=== PATIENT | male | born 1965 | race Caucasian/White ===

== ENCOUNTER → 2019-01-06 | Outpatient (CLI) | payer OTHER ==
--- NOTE | 2019-01-07 14:36 | XR ---
EXAMINATION TYPE: XR wrist complete RT DATE OF EXAM: 01/06/2019 CLINICAL HISTORY: Pain, extensor Tenosynovitis. TECHNIQUE: Frontal, lateral, scaphoid, and oblique images of the right wrist are obtained. COMPARISON: None FINDINGS: There is no acute fracture/dislocation evident in the right wrist. There is severe radial scaphoid joint space loss with endplate sclerosis. Scaphoid lunate angle is less than 30 degrees. The re is subchondral cystic change in the distal scaphoid and capitate The scapholunate widening. Some s clerosis and subchondral cystic change in the radial aspect of the lunate is present. Lunate capitate relationship is difficult to evaluate on lateral images. Overlying soft tissue is unremarkable. IMPRESSION: As above. Severe degenerative changes are noted.
--- NOTE | 2019-01-07 14:43 | XR ---
EXAMINATION TYPE: XR lumbar spine 2 or 3V DATE OF EXAM: 01/06/2019 CLINICAL HISTORY: Low back pain. TECHNIQUE: Frontal and lateral images of the lumbar spine are obtained. COMPARISON: None FINDINGS: There are 5 lumbar type vertebral bodies identified. There is right lateral step-off of L3 on L2. There is loss of normal lumbar lordosis with multilevel spondylolisthesis on lateral images. There is moderate to advanced disc space narrowing L2-L3 and L3-L4 levels. There is moderate to advan gaurav left lateral spurring and sclerosis L3-L4 level. There is mild to moderate disc space narrowing L 5-S1 level. There is mild to moderate narrowing and spurring L1-L2 level. There is stellate 1.8 cm de nsity just below right 12th rib favoring collecting system calculus. Gallstone felt less likely due t o posterior positioning on lateral view. Advise clinical and urine correlation and urology referral. IMPRESSION: As above.
== END | disposition home or self-care (01) ==
LOC: RADXRMAIN 17:16
PROVIDERS: ATTEND Family Medicine
DX: M99.73 Connective tissue and disc stenosis of intervertebral foramina of lumbar region (principal); M43.16 Spondylolisthesis, lumbar region; M19.031 Primary osteoarthritis, right wrist; M85.68 Other cyst of bone, other site
CPT/HCPCS: 72100

== ENCOUNTER 2020-01-29 07:32 | Emergency (ER) | payer OTHER ==
[2020-01-29 07:44] VITALS: RESP 18
[2020-01-29] MEDS ORDERED: KETOROLAC 30 MG/ML 1 ML VIAL IVP STA (07:52)
[2020-01-29] MEDS ORDERED: ONDANSETRON 4 MG/2 ML VIAL IVP STA (07:52)
[2020-01-29] MEDS ORDERED: SODIUM CHLORIDE 0.9% 1,000 ML IV STA (07:52)
--- NOTE | 2020-01-29 07:54 | ED ---
General Adult HPI - General Chief complaint: Abdominal Pain Stated complaint: Kidney stone Time Seen by Provider: 01/29/20 07:42 Source: patient, RN notes reviewed, old records reviewed Mode of arrival: ambulatory Limitations: no limitations - History of Present Illness Initial comments: 54-year-old male history of kidney stones presenting for evaluation of right flank and right lower abdominal pain. Pain is been present for the past one month. Has been getting worse. He states he was told several years ago that he had an additional kidney stone on the right this was after lithotripsy to remove several smaller stones. He reports dark urine. He's had nausea without vomiting. He's had normal bowel movements. No fever. - Related Data Previous Rx's Medication Instructions Recorded HYDROcodone/APAP 5-325MG [Gil[place] 1 tab PO Q6HR PRN #12 tab 01/29/20 5-325] Ibuprofen [Motrin] 600 mg PO Q8HR PRN #24 tab 01/29/20 Allergies Allergy/AdvReac Type Severity Reaction Status Date / Time Penicillins Allergy Rash/Hives Verified 01/29/20 08:29 Review of Systems ROS Statement: Those systems with pertinent positive or pertinent negative responses have been documented in the HPI. ROS Other: All systems not noted in ROS Statement are negative. Past Medical History Additional Past Medical History / Comment(s): kidney stones History of Any Multi-Drug Resistant Organisms: None Reported Past Surgical History: Hernia Repair Additional Past Surgical History / Comment(s): kidney stone removal not lithotripsy Past Psychological History: No Psychological Hx Reported Smoking Status: Current every day smoker Past Alcohol Use History: None Reported Past Drug Use History: None Reported General Exam Limitations: no limitations General appearance: alert, in no apparent distress Head exam: Present: atraumatic, normocephalic Eye exam: Present: normal appearance, PERRL ENT exam: Present: normal exam Neck exam: Present: normal inspection. Absent: tenderness, meningismus Respiratory exam: Present: normal lung sounds bilaterally. Absent: respiratory distress, wheezes Cardiovascular Exam: Present: regular rate, normal rhythm GI/Abdominal exam: Present: soft, tenderness (Minimal right lower quadrant tenderness). Absent: distended, guarding Extremities exam: Present: normal inspection, normal capillary refill Back exam: Present: normal inspection. Absent: CVA tenderness (R), CVA tendern ess (L) Neurological exam: Present: alert, oriented X3, CN II-XII intact. Absent: motor sensory deficit Psychiatric exam: Present: normal affect, normal mood Skin exam: Present: warm, dry, intact. Absent: cyanosis, diaphoretic Course Vital Signs 01/29/20 07:41 Temperature 98.4 F Pulse Rate 72 Respiratory 18 Rate Blood Pressure 176/108 O2 Sat by Pulse 99 Oximetry - Reevaluation(s) Reevaluation #1: 01/29/20 10:13 Regarding the patient's lung mass on CT. This was visualized partially on KUB and abdominal CT. CT chest with contrast was ordered which shows large posterior right hilar mass, concerning for neoplasm. Patient states he has known about this mass for at least 5 years. He had a biopsy. He has not received any treatment for malignancy. He states it has not been imaged in several years. It is not currently following with anyone regarding this finding. He states that he was told it was a "wandering mass" Medical Decision Making - Medical Decision Making 54-year-old male with history of kidney stones presenting with right flank pain which is been ongoing for 1 month. No vomiting. No fever. Patient given Toradol in the emergency department with improvement in symptoms. CT showing 2 mm stone at the UPJ with hydronephrosis. X-ray is consistent with CT findings. Additionally there is a right hilar mass which the patient has known about for at least 5 years. He has had this biopsied in the past. CT performed which does confirm this mass. Patient is given pulmonology follow-up. Case discussed with urology Dr. Yang, recommends outpatient follow-up for likely percutaneous removal. Patient given urology follow-up, pulmonology follow-up symptoms are controlled with 30 mg of Toradol, will be prescribed Motrin and Gilsum. Will return with worsening or changing symptoms. - Lab Data Result diagrams: 01/29/20 08:19 01/29/20 08:19 Lab Results 01/29/20 01/29/20 01/29/20 Range/Units 08:19 08:19 08:19 WBC 8.2 (3.8-10.6) k/uL RBC 4.76 (4.30-5.90) m/uL Hgb 16.0 (13.0-17.5) gm/dL Hct 46.4 (39.0-53.0) % MCV 97.5 (80.0-100.0) fL MCH 33.5 (25.0-35.0) pg MCHC 34.4 (31.0-37.0) g/dL RDW 12.8 (11.5-15.5) % Plt Count 314 (150-450) k/uL Neutrophils % 77 % Lymphocytes % 11 % Monocytes % 7 % Eosinophils % 3 % Basophils % 1 % Neutrophils # 6.3 (1.3-7.7) k/uL Lymphocytes # 0.9 L (1.0-4.8) k/uL Monocytes # 0.6 (0-1.0) k/uL Eosinophils # 0.2 (0-0.7) k/uL Basophils # 0.0 (0-0.2) k/uL PT 10.0 (9.0-12.0) sec INR 1.0 (<1.2) APTT 26.2 (22.0-30.0) sec Sodium 139 (137-145) mmol/L Potassium 3.7 (3.5-5.1) mmol/L Chloride 104 (98-107) mmol/L Carbon Dioxide 28 (22-30) mmol/L Anion Gap 7 mmol/L BUN 15 (9-20) mg/dL Creatinine 1.08 (0.66-1.25) mg/dL Est GFR (CKD-EPI)AfAm 89 (>60 ml/min/1.73 sqM) Est GFR (CKD-EPI)NonAf 77 (>60 ml/min/1.73 sqM) Glucose 102 H (74-99) mg/dL Plasma Lactic Acid Brent (0.7-2.0) mmol/L Calcium 9.0 (8.4-10.2) mg/dL Total Bilirubin 0.8 (0.2-1.3) mg/dL AST 22 (17-59) U/L ALT 15 (4-49) U/L Alkaline Phosphatase 74 (38-126) U/L Total Protein 6.7 (6.3-8.2) g/dL Albumin 4.1 (3.5-5.0) g/dL Amylase 56 (30-110) U/L Lipase 82 (23-300) U/L Urine Color Urine Appearance (Clear) Urine pH (5.0-8.0) Ur Specific [place] (1.001-1.035) Urine Protein (Negative) Urine Glucose (UA) (Negative) Urine Ketones (Negative) Urine Blood (Negative) Urine Nitrite (Negative) Urine Bilirubin (Negative) Urine Urobilinogen (<2.0) mg/dL Ur Leukocyte Esterase (Negative) Urine RBC (0-5) /hpf Urine WBC (0-5) /hpf Ur Squamous Epith Cells (0-4) /hpf Urine Bacteria (None) /hpf Urine Mucus (None) /hpf 01/29/20 01/29/20 Range/Units 08:19 09:29 WBC (3.8-10.6) k/uL RBC (4.30-5.90) m/uL Hgb (13.0-17.5) gm/dL Hct (39.0-53.0) % MCV (80.0-100.0) fL MCH (25.0-35.0) pg MCHC (31.0-37.0) g/dL RDW (11.5-15.5) % Plt Count (150-450) k/uL Neutrophils % % Lymphocytes % % Monocytes % % Eosinophils % % Basophils % % Neutrophils # (1.3-7.7) k/uL Lymphocytes # (1.0-4.8) k/uL Monocytes # (0-1.0) k/uL Eosinophils # (0-0.7) k/uL Basophils # (0-0.2) k/uL PT (9.0-12.0) sec INR (<1.2) APTT (22.0-30.0) sec Sodium (137-145) mmol/L Potassium (3.5-5.1) mmol/L Chloride (98-107) mmol/L Carbon Dioxide (22-30) mmol/L Anion Gap mmol/L BUN (9-20) mg/dL Creatinine (0.66-1.25) mg/dL Est GFR (CKD-EPI)AfAm (>60 ml/min/1.73 sqM) Est GFR (CKD-EPI)NonAf (>60 ml/min/1.73 sqM) Glucose (74-99) mg/dL Plasma Lactic Acid Brent 1.4 (0.7-2.0) mmol/L Calcium (8.4-10.2) mg/dL Total Bilirubin (0.2-1.3) mg/dL AST (17-59) U/L ALT (4-49) U/L Alkaline Phosphatase (38-126) U/L Total Protein (6.3-8.2) g/dL Albumin (3.5-5.0) g/dL Amylase (30-110) U/L Lipase (23-300) U/L Urine Color Yellow Urine Appearance Clear (Clear) Urine pH 6.0 (5.0-8.0) Ur Specific [place] 1.015 (1.001-1.035) Urine Protein 1+ H (Negative) Urine Glucose (UA) 1+ H (Negative) Urine Ketones Negative (Negative) Urine Blood Small H (Negative) Urine Nitrite Negative (Negative) Urine Bilirubin Negative (Negative) Urine Urobilinogen <2.0 (<2.0) mg/dL Ur Leukocyte Esterase Negative (Negative) Urine RBC 6 H (0-5) /hpf Urine WBC 5 (0-5) /hpf Ur Squamous Epith Cells <1 (0-4) /hpf Urine Bacteria Rare H (None) /hpf Urine Mucus Occasional H (None) /hpf Disposition Clinical Impression: Abdominal pain, Lung mass, Kidney stone on right side, Hydronephrosis Disposition: HOME SELF-CARE Condition: Fair Instructions (If sedation given, give patient instructions): Abdominal Pain (ED), Kidney Stones (ED), Flank Pain (ED) Additional Instructions: Please follow up with urology regarding kidney stone, Please follow-up with pulmonology regarding lung mass. Prescriptions: Ibuprofen [Motrin] 600 mg PO Q8HR PRN #24 tab PRN Reason: Pain HYDROcodone/APAP 5-325MG [[place] 5-325] 1 tab PO Q6HR PRN #12 tab PRN Reason: Pain Is patient prescribed a controlled substance at d/c from ED?: No Referrals: Aj Cooper DO [Primary Care Provider] - 1-2 days Tavo Yang MD [STAFF PHYSICIAN] - 1-2 days Mir Carnes MD [STAFF PHYSICIAN] - 1-2 days Time of Disposition: 10:26
--- NOTE | 2020-01-29 08:41 | CT ---
EXAMINATION TYPE: CT abdomen pelvis wo con DATE OF EXAM: 01/29/2020 HISTORY: Abdominal pain not further specified. History of renal stones. CT DLP: 444.8 mGycm. Automated Exposure Control for Dose Reduction was Utilized. TECHNIQUE: CT scan of the abdomen and pelvis is performed without oral or IV contrast. COMPARISON: NONE FINDINGS: Within the limitations of a non-contrast study, the following observations are made. LUNG BASES: Trace right pleural effusion with associated bibasilar compressive atelectasis. LIVER/GB: No significant abnormality is appreciated. PANCREAS: No significant abnormality is seen. SPLEEN: No significant abnormality is seen. ADRENALS: No significant abnormality is seen. KIDNEYS: Corresponding to localizer there is slightly irregular marginated 19 to 20 mm calculus at ri ght UPJ causing fairly severe right-sided pyelocaliectasis. No additional renal calculi bilaterally. No left-sided hydronephrosis. Scattered pelvic phleboliths. [id number]-[id number] concentric wall thickeni ng in the bladder presumed product of outlet obstruction related to BPH. Correlate clinically. BOWEL: Suboptimal evaluation without enteric contrast and patient having little intra-abdominal fat. No suspicious small or large bowel dilatation.. GENITAL ORGANS: Mildly enlarged prostate gland bulging on the bladder base consistent with BPH.. LYMPH NODES: No greater than 1cm abdominal or pelvic lymph nodes are appreciated. OSSEOUS STRUCTURES: Right lateral step-off bowel 3 on L2. Slight grade 1 retrolisthesis L1 on L2, L2 on L3, and L3 on L4. Severe disc space narrowing with endplate sclerosis and moderate spurring right L2-L3 and left L3-L4 levels. Nonspecific subcentimeter sclerotic focus posterior superior L3 vertebra favored benign bone island coronal image 54. Multilevel posterior disc herniations and spur disc com plexes efface the anterior thecal sac throughout the lumbar spine on sagittal images. OTHER: No significant additional abnormality is seen. IMPRESSION: There is large calculus measuring 19 to 20 mm long axis at right UPJ causing severe right -sided hydronephrosis.
[2020-01-29 08:43] LABS: Basophils % (A) 1 %; Eosinophils # (A) 0.2 k/uL (0-0.7); Eosinophils % (A) 3 %; HCT 46.4 % (39.0-53.0); Lymphocytes # (A) 0.9 k/uL (1.0-4.8); Lymphocytes % (A) 11 %; MCH 33.5 pg (25.0-35.0); MCHC 34.4 g/dL (31.0-37.0); MCV 97.5 fL (80.0-100.0); Mean Platelet Volume 6.3; Monocytes # (A) 0.6 k/uL (0-1.0); Monocytes % (A) 7 %; Neutrophils # (A) 6.3 k/uL (1.3-7.7); Neutrophils % (A) 77 %; Platelet Count 314 k/uL (150-450); RBC 4.76 m/uL (4.30-5.90); RDW 12.8 % (11.5-15.5); WBC 8.2 k/uL (3.8-10.6)
[2020-01-29 08:51] LABS: Partial Thromboplastin Time 26.2 sec (22.0-30.0)
[2020-01-29 08:52] LABS: Albumin 4.1 g/dL (3.5-5.0); Potassium 3.7 mmol/L (3.5-5.1); Total Bilirubin 0.8 mg/dL (0.2-1.3); Total Protein 6.7 g/dL (6.3-8.2)
[2020-01-29] MEDS ORDERED: RX INFO: IV CONTRAST WAS GIVEN 1 EACH MISC MISCELLANE PRN (09:26)
--- NOTE | 2020-01-29 09:29 | XR ---
EXAMINATION TYPE: XR KUB DATE OF EXAM: 01/29/2020 9:16 AM CLINICAL HISTORY: History of renal stones with abdominal pain. TECHNIQUE: Two Upright KUB images of the abdomen are obtained. COMPARISON: CT abdomen and pelvis earlier today. FINDINGS: Scattered gas is seen in non-distended stomach and small bowel loops. Gas and fecal materia l is seen in non-distended colon. There is 1.7 cm stellate calcification or calculus right L2 transve rse process level corresponding to dominant stone UPJ on recent CT. Scattered bilateral pelvic phlebo liths. No pneumoperitoneum. Partial visualization of right hilar masslike consolidation. Right latera l step-off L2-L3 level. No pneumoperitoneum. IMPRESSION: Confirmation of known large right UPJ calculus measuring roughly 19 mm. Suspicious right hilar masslike consolidation partially imaged, cannot rule out underlying neoplasm. Follow-up advised . Results communicated to ordering ER physician via telephone at time of dictation.
[2020-01-29 09:58] LABS: Color,Urine Yellow
[2020-01-29 09:59] LABS: Appearance,Urine Clear (Clear); Specific Gravity,Urine 1.015 (1.001-1.035)
[2020-01-29 10:00] LABS: Bilirubin,Urine Negative (Negative); Blood,Urine Small (Negative); Glucose,Urine (UA) 1+ (Negative); Ketones,Urine Negative (Negative); Leukocyte Esterase,Urine Negative (Negative); Nitrite,Urine Negative (Negative); Urobilinogen,Urine <2.0 mg/dL (<2.0)
[2020-01-29 10:01] LABS: Bacteria,Urine Rare /hpf; Mucus,Urine Occasional /hpf; RBC,Urine 6 /hpf (0-5); Squamous Epithelial Cell,Urine <1 /hpf (0-4); WBC,Urine 5 /hpf (0-5)
--- NOTE | 2020-01-29 10:10 | CT ---
EXAMINATION TYPE: CT chest w con DATE OF EXAM: 01/29/2020 COMPARISON: None HISTORY: Lung mass CT DLP: 268.5 mGycm, Automated exposure control for dose reduction was used. CONTRAST: Performed injected with 100 mL of Isovue 300. TECHNIQUE: Axial images were obtained at 5 mm thick sections. Reconstructed images are reviewed on [employer] computer in the coronal plane. FINDINGS: Portion of the thyroid visualized is normal. There is a large mass in the posterior medial right midlung. This has some mild posterior right perib ronchial compression causing narrowing. Mass measures 7.9 x 8.9 x 12.7 cm. Series 201 image 25, serie s 202 image 55. This has some central hypodensity. A small amount of right pleural effusion is adjace nt. No enlarged mediastinal or hilar adenopathy is evident. The ascending aorta diameter at the level o f the main pulmonary artery is 3.6 cm. The main pulmonary artery diameter at the bifurcation is 2.[address] sections are obtained through the upper abdomen. Large calcifications in the right renal p sunny with moderate hydronephrosis. IMPRESSIONS: 1. Large posterior medial lung mass adjacent to the spine. Workup for neoplasm is recommended.
[2020-01-29 10:46] VITALS: BP 159/99; PULSE 66; TEMP 97.8
[2020-01-30 11:48] LABS: Protein,Urine Negative (Negative)
== END 2020-01-29 10:46 | disposition home or self-care (01) ==
LOC: EC 07:32
DX: N13.2 Hydronephrosis with renal and ureteral calculous obstruction (principal); R91.8 Other nonspecific abnormal finding of lung field; F17.200 Nicotine dependence, unspecified, uncomplicated; Z88.0 Allergy status to penicillin; Z98.890 Other specified postprocedural states
CPT/HCPCS: 36415; 80053; 82150; 83605; 83690; 85025; 85610; 85730; 81001; 74018; 71260; 74176; 99285; 96374; 96375; 96361; J2405; J1885; Q9967

== ENCOUNTER → 2020-02-08 | Outpatient (CLI) | payer OTHER ==
[2020-02-08 15:59] LABS: Appearance,Urine Clear (Clear); Bacteria,Urine Rare /hpf; Bilirubin,Urine Negative (Negative); Blood,Urine Large (Negative); Color,Urine Yellow; Glucose,Urine (UA) Negative (Negative); Hyaline Casts,Urine 1 /lpf (0-2); Ketones,Urine Negative (Negative); Leukocyte Esterase,Urine Moderate (Negative); Mucus,Urine Few /hpf; Nitrite,Urine Negative (Negative); PH, Urine 5.5 (5.0-8.0); Protein,Urine 1+ (Negative); RBC,Urine 174 /hpf (0-5); Specific Gravity,Urine 1.016 (1.001-1.035); Squamous Epithelial Cell,Urine <1 /hpf (0-4); Urobilinogen,Urine <2.0 mg/dL (<2.0); WBC,Urine 26 /hpf (0-5)
[2020-02-08 16:10] LABS: Basophils # (A) 0.1 k/uL (0-0.2); Basophils % (A) 1 %; Eosinophils # (A) 0.1 k/uL (0-0.7); Eosinophils % (A) 1 %; HCT 46.3 % (39.0-53.0); HGB 14.9 gm/dL (13.0-17.5); Lymphocytes # (A) 1.4 k/uL (1.0-4.8); Lymphocytes % (A) 17 %; MCH 31.9 pg (25.0-35.0); MCHC 32.3 g/dL (31.0-37.0); MCV 98.7 fL (80.0-100.0); Mean Platelet Volume 6.4; Monocytes # (A) 0.5 k/uL (0-1.0); Monocytes % (A) 6 %; Neutrophils # (A) 5.9 k/uL (1.3-7.7); Neutrophils % (A) 74 %; Platelet Count 341 k/uL (150-450); RBC 4.69 m/uL (4.30-5.90); RDW 12.8 % (11.5-15.5)
[2020-02-08 16:19] LABS: Albumin 4.5 g/dL (3.5-5.0); Calcium 9.5 mg/dL (8.4-10.2); Potassium 3.9 mmol/L (3.5-5.1); Total Bilirubin 0.9 mg/dL (0.2-1.3)
== END | disposition home or self-care (01) ==
LOC: LABPAT 14:42
PROVIDERS: ATTEND Urology
DX: Z01.818 Encounter for other preprocedural examination (principal); N20.0 Calculus of kidney; R31.0 Gross hematuria
CPT/HCPCS: 36415; 80053; 81001; 85025; 87086

== ENCOUNTER 2020-02-14 06:08 | Day surgery (SDC) | payer OTHER ==
--- NOTE | 2020-02-11 19:32 | P.GSHP ---
History of Present Illness H&P Date: 02/11/20 54 yo male came via the [facility] with a large obstructing right renal pelvic stone. He has a history of stones including 2 previous ureteroscopies elswhere. He has a history of a large reight lung mass previously biopsied negative for carcinoma. Because of the pain and the large right renal pelvic stone he comes for a pcnl right. Risks and complications including failure to remove the stone, damage to adjacent organs, infection bleeding ain, transfusion ,loss of kidney have been explained understood and accepted. - Respiratory Comment: history of a sowly growing lung ss right , previously bipsied negative. He hasnt followed with a pulmonary doctor in some time by his own choice. Past Medical History Additional Past Medical History / Comment(s): kidney stones, lung disease with a right pulmonary mass biopsied negative for cancer in the past. History of Any Multi-Drug Resistant Organisms: None Reported Past Surgical History: Hernia Repair Additional Past Surgical History / Comment(s): kidney stone removal not lithotripsy Past Psychological History: No Psychological Hx Reported Smoking Status: Current every day smoker Past Alcohol Use History: None Reported Past Drug Use History: None Reported Medications and Allergies Home Medications Medication Instructions Recorded Confirmed Type HYDROcodone/APAP 5-325MG [[place] 1 tab PO Q6HR PRN #12 tab 01/29/20 Rx 5-325] Ibuprofen [Motrin] 600 mg PO Q8HR PRN #24 tab 01/29/20 Rx Allergies Allergy/AdvReac Type Severity Reaction Status Date / Time Penicillins Allergy Rash/Hives Verified 01/29/20 08:29 Surgical - Exam - General well developed, well nourished, no distress - Eyes normal ocular movement, no icteric - ENT no hearing loss, no congestion - Neck no masses, trachea midline - Respiratory normal respiratory effort, clear to auscultation - Abdomen Abdomen: soft, non tender, no guarding, no rigid, no rebound - Integumentary no rash, no abnormal pigmentation - Neurologic no disoriented, no combative - Psychiatric oriented to time, oriented to person, oriented to place, speech is normal, memory intact Results - Imaging CT scan - abdomen: report reviewed, image reviewed CT scan - pelvis: report reviewed, image reviewed Assessment and Plan Assessment: Impression: right renal pelvic stone large. Plan: Right PCNL
[2020-02-13 08:41] VITALS: BMI 22.4
[~2020-02-14 06:08] MED LIST: DEXAMETHASONE SOD PHOSPHATE 10 MG/ML 1 ML VIAL IV ONE; HYDROmorphone 0.5 MG/0.5 ML SYRINGE IVP PRN; LIDOCAINE 1% (10MG/ML) FOR IV START INTRADERMA PRN; MIDAZOLAM 2 MG/2 ML VIAL IV PRN; ONDANSETRON 4 MG/2 ML VIAL IVP ONE; fentaNYL (PF) 50 MCG/ML 2 ML AMP IVP PRN
[2020-02-14] MEDS ORDERED: ONDANSETRON 4 MG/2 ML VIAL ONE (06:53)
[2020-02-14] MEDS ORDERED: LIDOCAINE 1% (10MG/ML) FOR IV START INTRADERMA ONE (06:56)
[2020-02-14] MEDS ORDERED: LACTATED RINGERS 1,000 ML IV ONE ×2 (06:56→09:05)
[2020-02-14] MEDS ORDERED: fentaNYL (PF) 50 MCG/ML 2 ML AMP ONE (07:25)
[2020-02-14] MEDS ORDERED: MIDAZOLAM 2 MG/2 ML VIAL ONE (07:25)
[2020-02-14] MEDS ORDERED: KETOROLAC 30 MG/ML 1 ML VIAL ONE (07:25)
[2020-02-14] MEDS ORDERED: HYDROmorphone (PF) 1 MG/ML ONE (07:25)
[2020-02-14] MEDS ORDERED: PROPOFOL 10 MG/ML 20 ML VIAL IV ONE (07:25)
[2020-02-14] MEDS ORDERED: SUCCINYLCHOLINE CHLORIDE 100 MG/5 ML SYR IV ONE (07:25)
[2020-02-14] MEDS ORDERED: ROCURONIUM BROMIDE 10 MG/ML 5 ML VIAL IV ONE (07:25)
[2020-02-14] MEDS ORDERED: ePHEDrine SULFATE/0.9% NACL/PF 50 MG/5 ML SYRINGE IV ONE (07:25)
[2020-02-14] MEDS ORDERED: GLYCOPYRROLATE 0.2 MG/ML 2 ML VIAL ONE (07:25)
[2020-02-14] MEDS ORDERED: NEOSTIGMINE 1 MG/ML 10 ML VIAL ONE (07:25)
[2020-02-14] MEDS ORDERED: LIDOCAINE 1% INJ 10MG/ML (20 ML MDV) ONE (07:25)
[2020-02-14] MEDS ORDERED: IOPAMIDOL-370 50ML BTL INJ ONE (08:29)
--- NOTE | 2020-02-14 08:51 | XR ---
EXAMINATION TYPE: XR abdomen 1V DATE OF EXAM: 02/14/2020 COMPARISON: 01/29/2020 HISTORY: Right renal stone TECHNIQUE: Frontal view abdomen FINDINGS: Calcification overlying the right mid kidney measurements are 2.1 x 1.9 cm. Some magnificat ion may be accounting for the apparent increase in size. Psoas margins are normal. Organomegaly is not evident. Loops of bowel with bowel gas are normal. Phle boliths within the pelvis. IMPRESSION: 1. Large right renal stone remains present
[2020-02-14] MEDS ORDERED: HYDROcodone/APAP 5-325MG 1 EACH TAB PO PRN (09:14)
[2020-02-14] MEDS ORDERED: ONDANSETRON 4 MG/2 ML VIAL IVP PRN ×2 (09:15→17:28)
[2020-02-14] MEDS ORDERED: ACETAMINOPHEN TAB 325 MG TAB PO PRN ×2 (09:15→17:30)
[2020-02-14] MEDS ORDERED: DEXTROSE 5%-0.45% NACL 1,000 ML IV SCH (09:15)
[2020-02-14] MEDS ORDERED: MAG HYDROX/AL HYDROX/SIMETH 30 ML CUP PO PRN ×2 (09:15→17:30)
[2020-02-14] MEDS ORDERED: HYDROmorphone PCA 10 MG/50 ML BAG IV PRN ×3 (09:19→13:58)
[2020-02-14] MEDS ORDERED: NALOXONE 0.4 MG/ML 1 ML VIAL IV PRN ×2 (09:19→17:29)
[2020-02-14] MEDS ORDERED: ONDANSETRON 4 MG/2 ML VIAL IVP ONE (09:24)
--- NOTE | 2020-02-14 09:24 | P.OP ---
Date of Procedure: 02/14/20 Preoperative Diagnosis: Right renal calculus Postoperative Diagnosis: Same Procedure(s) Performed: Cystoscopy, right ureteral stent placement, right percutaneous nephrostomy (Dr. galan), percutaneous nephrostolithotomy with ultrasound, placement of 10-Fr ench nephrostomy tube Anesthesia: KELLY Surgeon: Hieu Barger Estimated Blood Loss (ml): 50 Pathology: other (Stone) Condition: stable Disposition: PACU Indications for Procedure: The patient is 54. He is active urolithiasis. He has a 16-17 mm UPJ stone on the right. He has been given treatment options. He comes for percutaneous nephrostolithotomy Description of Procedure: The patient is brought to the operating suite. He is given a general endotracheal anesthesia on the transport gurney. He's placed in a frog position with a sterile prep and drape. Cystoscopy Foroblique lens and 22-[place] sheath identifies a normal urethra. The prostate shows an intravesical middle lobe. The ureteral orifices are normal. The right ureter is intubated with a 5-[place] occluding balloon catheter this passed into the right kidney. It is secured to a 16-[place] African Hollins. The patient's placed in a prone position with care to airways and extremities. Dr. Galan of radiology performed percutaneous access to the right lower pole calyx. I then dilated the tract to 30-South African. I introduced the rigid scope into the collecting system and advance it into the renal pelvis where the large stone was identified. With ultrasound the stone was broken into smaller pieces which were grasped and removed. The very small pieces are suctioned out with the ultrasonic probe. I looked throughout the collecting system there are no remaining fragments. I then look fluoroscopically and see no remaining fragments. A 10-[place] African J nephrostomy tube was placed into the renal pelvis. It is secured to the skin with 2-0 silk. The sheath is removed the patient's awake and returned recovery room good condition. Blood loss is approximately 50 mL. The patient will be placed in the hospital postoperatively. His condition is good.
[2020-02-14] MEDS ORDERED: HYDROmorphone 1 MG/ML 1 ML SYRINGE IVP ONE ×2 (09:26→09:35)
--- NOTE | 2020-02-14 09:30 | FL ---
EXAMINATION TYPE: FL Perc Nephrostomy New Access DATE OF EXAM: 02/14/2020 COMPARISON: 02/14/2020 HISTORY: Right renal calculus Procedure had been discussed with the patient by Dr. Barger, risks, benefits, alternatives, were dis cussed and any questions were answered. Informed consent was obtained. The patient was in a semipro ne position prepped and draped on the OR table in the usual sterile fashion. Utilizing a 15 cm lengt h [place] needle a single pass was made into a lower pole posterior calyx under fluoroscopic guidance. An 0.018 guidewire is passed through the needle and there was placement of a 6-[place] catheter sheat h system. There was conversion to a 0.035 system was performed with passage of a guidewire into the ureter utilizing a directional catheter. A second safety wire was placed. Remaining portion of pro cedure performed by . Approximately 1 minute and 18 seconds of fluoroscopy was provided. IMPRESSION: 1. Successful intraoperative right nephrostomy prior to nephrolithotomy.
[2020-02-14] MEDS ORDERED: diphenhydrAMINE 50 MG/ML 1 ML VIAL IVP ONE (09:39)
[2020-02-14] MEDS ORDERED: KETOROLAC 30 MG/ML 1 ML VIAL IVP SCH (12:00)
[2020-02-14] MEDS ORDERED: HYDROmorphone 0.5 MG/0.5 ML SYRINGE IVP STA (12:45)
[2020-02-14] MEDS: KETOROLAC 30 MG/ML 1 ML VIAL IVP SCH (20:31)
[2020-02-15] MEDS: LACTATED RINGERS 1,000 ML IV SCH (06:07)
[2020-02-15] MEDS: KETOROLAC 30 MG/ML 1 ML VIAL IVP SCH (06:08)
--- NOTE | 2020-02-15 07:22 | P.DS ---
Providers Attending physician: Hieu Barger Primary care physician: Stated None Hospital Course: the patient is 54. He has a large right renal stone. He underwent percutaneous nephrostolithotomy yesterday 02/14/2020 without difficulty. He did well overnight. The urine is a little bloody but there is no pain. I will remove his Hollins and IV fluids. He'll be discharged home later this morning. He'll be discharged home with a prescription of Hamel. He'll follow-up in the office next week for nephrostomy tube removal. The stone is been analyzed. He also has a mass on his lung that was biopsied several years agoas nonmalignant. It is growing. We discussed this and he will make an appointment to see a calculating machine operator for follow-up.his condition is good. Patient Condition at Discharge: Good Plan - Discharge Summary Discharge Rx Participant: Yes New Discharge Prescriptions: New HYDROcodone/APAP 5-325MG [[place] 5-325] 1 tab PO Q4HR PRN #14 tab PRN Reason: Pain Control No Action Ibuprofen [Motrin] 600 mg PO Q8HR PRN #24 tab PRN Reason: Pain HYDROcodone/APAP 5-325MG [[place] 5-325] 1 tab PO Q6HR PRN #12 tab PRN Reason: Pain Discharge Medication List HYDROcodone/APAP 5-325MG [[place] 5-325] 1 tab PO Q6HR PRN #12 tab 01/29/20 [Rx] Ibuprofen [Motrin] 600 mg PO Q8HR PRN #24 tab 01/29/20 [Rx] HYDROcodone/APAP 5-325MG [[place] 5-325] 1 tab PO Q4HR PRN #14 tab 02/15/20 [Rx] Follow up Appointment(s)/Referral(s): Hieu Barger MD [STAFF PHYSICIAN] - 02/19/20 (8 am wednesday call office for ne phrostomy tube removal) Discharge Disposition: HOME SELF-CARE
[2020-02-16 08:34] VITALS: BP 147/79; PULSE 81; RESP 16; TEMP 98.2
[2020-02-16] MEDS ORDERED: IBUPROFEN 600 MG TAB PO PRN (12:00)
== END 2020-02-15 09:45 | disposition home or self-care (01) ==
LOC: OR 06:08 → 4SSUR 12:18 → OR 02-15 09:45
PROVIDERS: ATTEND Urology
DX: N20.0 Calculus of kidney (principal); F17.200 Nicotine dependence, unspecified, uncomplicated; Z88.0 Allergy status to penicillin; Z98.890 Other specified postprocedural states; Z87.442 Personal history of urinary calculi
CPT/HCPCS: 86900; 86901; 86850; 82365; 50432; 74018; 50080; C1769 ×4; C2628; C1894; J2250; J1200; J2710; J0690; J2405; J2001; J3010; J1885; J1170 ×2; J0330; J2704; Q9967

== ENCOUNTER 2020-02-23 12:44 | Emergency (ER) | payer OTHER ==
--- NOTE | 2020-02-23 14:06 | ED ---
Abdominal Pain HPI - General Chief Complaint: Abdominal Pain Stated Complaint: Cannot Urinate Time Seen by Provider: 02/23/20 12:54 Source: patient Mode of arrival: ambulatory Limitations: no limitations - History of Present Illness Initial Comments: Patient is a 54-year-old male presenting to emergency Department with complaints of urinary retention, right-sided abdominal pain. Patient states he had a recent nephrolithotomy with Dr. Barger last week. Patient states he had his drain removed 4 days ago and has been doing well. He states his hematuria has even cleared up until this morning. Patient states she started having right- sided flank pain and then has been unable to urinate since early this morning. Patient states when he tried only a little bit of blood comes out. He denies any recent fever, chills, vomiting, diarrhea. He has no further complaints at this time. Upon arrival to the ER, his vital signs are stable. - Related Data Previous Rx's Medication Instructions Recorded Ibuprofen [Motrin] 600 mg PO Q8HR PRN #24 tab 01/29/20 HYDROcodone/APAP 5-325MG [[place] 1 tab PO Q4HR PRN #14 tab 02/15/20 5-325] Cephalexin [Keflex] 500 mg PO Q6HR 7 Days #28 cap 02/23/20 HYDROcodone/APAP 5-325MG [[place] 1 tab PO Q6HR PRN #12 tab 02/23/20 5-325] Ondansetron Odt [Zofran Odt] 4 mg PO Q8HR PRN #10 tab 02/23/20 Allergies Allergy/AdvReac Type Severity Reaction Status Date / Time Penicillins Allergy Rash/Hives Verified 02/23/20 12:50 Review of Systems ROS Statement: Those systems with pertinent positive or pertinent negative responses have been documented in the HPI. ROS Other: All systems not noted in ROS Statement are negative. Past Medical History Additional Past Medical History / Comment(s): kidney stones History of Any Multi-Drug Resistant Organisms: None Reported Past Surgical History: Hernia Repair Additional Past Surgical History / Comment(s): kidney stone removal not lithotripsy Past Psychological History: No Psychological Hx Reported Smoking Status: Current every day smoker Past Alcohol Use History: None Reported Past Drug Use History: None Reported - Past Family History Mother Family Medical History: No Reported History Father Family Medical History: Cancer General Exam - General Exam Comments Initial Comments: GENERAL: Well-appearing, well-nourished and in no acute distress. HEAD: Atraumatic, normocephalic. EYES: Pupils equal round and reactive to light, extraocular movements intact, sclera anicteric, conjunctiva are normal. ENT: TMs normal, nares patent, oropharynx clear without exudates. Moist mucous membranes. NECK: Normal range of motion, supple without lymphadenopathy or JVD. LUNGS: Breath sounds clear to auscultation bilaterally and equal. No wheezes rales or rhonchi. HEART: Regular rate and rhythm without murmurs, rubs or gallops. ABDOMEN: Pressure with palpation over the bladder area, mild pain with palpation of the right flank, right side of the abdomen. Soft, normoactive bowel sounds. No guarding, no rebound. No masses appreciated. : Deferred EXTREMITIES: Normal range of motion, no pitting or edema. No clubbing or cyanosis. NEUROLOGICAL: Normal speech, normal gait. PSYCH: Normal mood, normal affect. SKIN: Warm, Dry, normal turgor, no rashes or lesions noted. Limitations: no limitations Course Vital Signs 02/23/20 02/23/20 12:47 15:21 Temperature 98.4 F 98 F Pulse Rate 102 H 86 Respiratory 20 18 Rate Blood Pressure 159/89 160/97 O2 Sat by Pulse 99 98 Oximetry Medical Decision Making - Medical Decision Making Patient is a 54-year-old male here for right-sided flank pain. Patient had recent procedure with Dr. Barger last week. Started to have hematuria this morning and urinary retention. Bladder scan revealed a large amount of urine so a catheter was placed. Patient's urine was draining, gross hematuria present. UA revealed 43 WBCs as well as a very bloody appearance. Ultrasound reveals hydronephrosis with internal debris, possibly clots. Catheter has been draining. Discussed case with Dr. Adorno. Dr. Yang was contacted and recommended patient be started on antibiotics, urine culture pending, and will follow-up with Dr. Barger in the office Wednesday morning. He is stable for discharge. Patient will be sent home on [employer] for pain as well as Zofran. He is in agreement with this plan of care. Return parameters were discussed with the patient and he verbalized understanding. - Lab Data Lab Results 02/23/20 Range/Units 13:37 Urine Color Red Urine Appearance Bloody (Clear) Urine RBC >182 H (0-5) /hpf Urine WBC 43 H (0-5) /hpf Disposition Clinical Impression: UTI (urinary tract infection), Right flank pain, Hydronephrosis Disposition: HOME SELF-CARE Condition: Stable Instructions (If sedation given, give patient instructions): Urinary Tract Infection in Men (ED) Additional Instructions: Please return to the Emergency Department if symptoms worsen or any other concerns. Follow-up with Dr. Barger as discussed on Wednesday. Take antibiotics as prescribed. Prescriptions: Cephalexin [Keflex] 500 mg PO Q6HR 7 Days #28 cap HYDROcodone/APAP 5-325MG [[place] 5-325] 1 tab PO Q6HR PRN #12 tab PRN Reason: Pain Ondansetron Odt [Zofran Odt] 4 mg PO Q8HR PRN #10 tab PRN Reason: Nausea Is patient prescribed a controlled substance at d/c from ED?: Yes When asked, does pt state using other controlled substances?: No If prescribed controlled substance>3 days was MAPS reviewed?: Prescribed <3 Days If opioid is for acute pain is fill amount 7 days or less?: Yes If Rx opioid, was Start Talking consent form obtained?: Yes Referrals: Aj Cooper DO [Primary Care Provider] - 1-2 days Hieu Barger MD [STAFF PHYSICIAN] - 1-2 days
[2020-02-23 14:21] LABS: RBC,Urine >182 /hpf (0-5); WBC,Urine 43 /hpf (0-5)
[2020-02-23 14:22] LABS: Appearance,Urine Bloody (Clear); Color,Urine Red
--- NOTE | 2020-02-23 14:28 | US ---
EXAMINATION TYPE: US kidneys/renal and bladder DATE OF EXAM: 02/23/2020 COMPARISON: NONE CLINICAL HISTORY: Right flank pain. extreme right flank pain, patient cannot void, now has islas cath with output being bright red, h/o nephrolithotomy 10 days ago EXAM MEASUREMENTS: Right Kidney: 12.7 x 7.1 x 7.5 cm Left Kidney: 11.1 x 4.7 x 4.5 cm Right Kidney: hydronephrosis with internal debris noted, possible thrombus Left Kidney: No hydronephrosis or masses seen Bladder: islas No nephrolithiasis is seen. No masses are identified. Islas catheter limits evaluation of the urinar y bladder. IMPRESSION: Moderate right-sided hydronephrosis.
[2020-02-23] MEDS ORDERED: KETOROLAC 60 MG/2 ML VIAL IM STA (15:09)
[2020-02-23 15:27] VITALS: BP 160/97; PULSE 86; RESP 18; TEMP 98
== END 2020-02-23 15:21 | disposition home or self-care (01) ==
LOC: EC 12:44
DX: N39.0 Urinary tract infection, site not specified (principal); N13.30 Unspecified hydronephrosis; F17.200 Nicotine dependence, unspecified, uncomplicated; Z88.0 Allergy status to penicillin; Z87.442 Personal history of urinary calculi; Z98.890 Other specified postprocedural states
CPT/HCPCS: 81001; 87086; 76770; 99284; 51702; 96372; J1885

== ENCOUNTER 2020-02-24 16:51 | Emergency (ER) | payer OTHER ==
[2020-02-24 16:56] VITALS: BP 172/98; PULSE 102; RESP 18; TEMP 98.4
--- NOTE | 2020-02-24 17:21 | ED ---
Male Urogenital HPI - General Chief complaint: Urogenital Stated complaint: problems with catheter Time Seen by Provider: 02/24/20 17:01 Source: patient Mode of arrival: ambulatory Limitations: no limitations - History of Present Illness Initial comments: Patient is a 54-year-old male presenting to the emergency room with a chief complaint of Hollins catheter pain and discomfort. Patient states recently he had a lithotomy performed by Dr. Abarca. States she was recovering well after the procedure until yesterday when she began to have gross hematuria. Patient states he was having urinary retention. Patient states he had a Hollins catheter placed yesterday which helped alleviate some of discomfort. Patient states today he continues to have pain around the glans penis and occasionally has urine passing outside of the catheter. States he is otherwise draining well into the catheter bag. He is only draining blood at this time. Denies any eryt berto around the glans penis. Denies any abdominal pain nausea vomiting fever or chills. States she has a scheduled appointment with Dr. Abarca in 2 days. - Related Data Previous Rx's Medication Instructions Recorded Ibuprofen [Motrin] 600 mg PO Q8HR PRN #24 tab 01/29/20 HYDROcodone/APAP 5-325MG [[place] 1 tab PO Q4HR PRN #14 tab 02/15/20 5-325] Cephalexin [Keflex] 500 mg PO Q6HR 7 Days #28 cap 02/23/20 HYDROcodone/APAP 5-325MG [[place] 1 tab PO Q6HR PRN #12 tab 02/23/20 5-325] Ondansetron Odt [Zofran Odt] 4 mg PO Q8HR PRN #10 tab 02/23/20 Allergies Allergy/AdvReac Type Severity Reaction Status Date / Time Penicillins Allergy Rash/Hives Verified 02/24/20 16:53 Review of Systems ROS Statement: Those systems with pertinent positive or pertinent negative responses have been documented in the HPI. ROS Other: All systems not noted in ROS Statement are negative. Past Medical History Additional Past Medical History / Comment(s): kidney stones History of Any Multi-Drug Resistant Organisms: None Reported Past Surgical History: Hernia Repair Additional Past Surgical History / Comment(s): kidney stone removal not li thotripsy Past Psychological History: No Psychological Hx Reported Smoking Status: Current every day smoker Past Alcohol Use History: None Reported Past Drug Use History: None Reported - Past Family History Mother Family Medical History: No Reported History Father Family Medical History: Cancer General Exam Limitations: no limitations General appearance: alert, in no apparent distress Head exam: Present: atraumatic, normocephalic, normal inspection Eye exam: Present: normal appearance, PERRL, EOMI Pupils: Present: normal accommodation ENT exam: Present: normal exam, normal oropharynx, mucous membranes moist, TM's normal bilaterally, normal external ear exam Neck exam: Present: normal inspection, full ROM. Absent: tenderness Respiratory exam: Present: normal lung sounds bilaterally. Absent: respiratory distress, wheezes Cardiovascular Exam: Present: regular rate, normal rhythm, normal heart sounds GI/Abdominal exam: Present: soft. Absent: distended, tenderness, guarding exam: Present: normal inspection, circumcision, other (No signs of infection around the penis. Hollins catheter in place and draining well.). Absent: testicular tenderness, urethral discharge, scrotal swelling, vertical testicular lie Extremities exam: Present: normal inspection, full ROM, normal capillary refill. Absent: tenderness Back exam: Present: normal inspection, full ROM. Absent: tenderness, CVA tenderness (R), CVA tenderness (L) Neurological exam: Present: alert, oriented X3 Psychiatric exam: Present: normal affect, normal mood Skin exam: Present: warm, dry, intact, normal color Course Vital Signs 02/24/20 16:53 Temperature 98.4 F Pulse Rate 102 H Respiratory 18 Rate Blood Pressure 172/98 O2 Sat by Pulse 99 Oximetry Medical Decision Making - Medical Decision Making Patient is a 54-year-old male presenting to the emergency Department with a chief complaint of Hollins catheter pain and discomfort. On exam the signs of infection. Full catheter appears to be in place. Hollins catheter bag is full of gross hematuria. Bladder scan reveals less than 30 mL of urine. Advised the patient to continue having the Hollins catheter until he sees the urologist in 2 days. Patient was on the concern for the discomfort because he has never had a Hollins catheter previously. Patient is advised to continue taking the Keflex. Return parameters were thoroughly discussed with patient is understanding ago. Case discussed with physician. Disposition Clinical Impression: Hollins catheter in place Disposition: HOME SELF-CARE Condition: Stable Instructions (If sedation given, give patient instructions): Hollins Catheter Placement and Care (ED) Additional Instructions: Follow-up with urologist. Continue taking the Keflex. Return to emergency department if symptoms worsen. Is patient prescribed a controlled substance at d/c from ED?: No Referrals: Aj Cooper DO [Primary Care Provider] - 1-2 days Time of Disposition: 18:01
== END 2020-02-24 18:20 | disposition home or self-care (01) ==
LOC: EC 16:51
DX: R31.9 Hematuria, unspecified (principal); R33.9 Retention of urine, unspecified; N48.89 Other specified disorders of penis; F17.200 Nicotine dependence, unspecified, uncomplicated; Z88.0 Allergy status to penicillin; Z87.442 Personal history of urinary calculi; Z98.890 Other specified postprocedural states
CPT/HCPCS: 99283

== ENCOUNTER → 2020-04-02 | Outpatient (CLI) | payer OTHER | END | disposition home or self-care (01) | LOC: LABWHC1 11:04 | PROVIDERS: ATTEND Nurse Practitioner Family | DX: Z20.828 Contact with and (suspected) exposure to other viral communicable diseases (principal) | CPT/HCPCS: U0003; C9803 ==